=== PATIENT | male | born 1930 | race Caucasian/White ===

== ENCOUNTER 2018-03-12 13:15 | Outpatient (RCR) | payer MEDICARE ==
[~2018-03-12 13:15] MED LIST: AMLO10TA82 PO; ASP81TEC PO; ATOR10TA PO; CALC-146 PO; CARNITINE PO; CEFU500T5 PO; CHOL10008 PO; CHOL5000 PO; CIPR-17 PO; CRAN450T9 PO; DIGESTIVE ADVANTAGE PO; ENZY1CAP3 PO; FENO145T20 PO; FENO200C PO; FERR-65 PO; FLUT16SP22 NS; GARL1500 PO; GLUC-116 PO; GLUC-160 PO; GLUC1CAP37 PO; KRIL500C PO; LEVO500T2 PO; LISI20TA PO; LISI40TA PO; MAGNESIUM PO; MECL-106 PO; METAMUCIL POWD283 GM PO; METH454P PO; METO-333 PO; METO-387 PO; MGX400T PO; MULT-142 PO; MULT-959 PO; MULT1TAB5 PO; NICO2LOZ MM; OMEG-70 PO; OMEG10005 PO; OMEGA 3 KRILL OIL PO; OMEGA Q PLUS PO; PHEN100C11 PO; PHEN200T16 PO; PNT40TEC PO; POTA99TA13 PO; POTA99TA7 PO; POTASSIUM PO; SENN-75 PO; SIMV10TA3 PO; TICA90TA PO; TURMERIC PO; UBID100C17 PO; UBID50CA PO; VIT1CAPS29 PO; ZINC50TA5 PO; ZINC50TA51 PO; [UNRECOGNIZED DRUG - CODE] PO; [UNRECOGNIZED DRUG - CODE] PO; [UNRECOGNIZED DRUG - CODE] PO; [UNRECOGNIZED DRUG - OTHER] PO; [UNRECOGNIZED DRUG - OTHER] PO; policosanol PO
[2018-03-12 13:37] LABS: HEMATOCRIT 46 % (40-54); HEMOGLOBIN 15.1 G/DL (13.3-17.7); MEAN CORPUSCULAR HEMOGLOBIN 30 PG (25-34); MEAN CORPUSCULAR HGB CONC 33 G/DL (32-36); MEAN CORPUSCULAR VOLUME 90 FL (80-99); MEAN PLATELET VOLUME 10.8 FL (7.4-10.4); PLATELET COUNT 157 10^3/uL (130-400); RED BLOOD COUNT 5.09 10^6/uL (4.35-5.85); RED CELL DISTRIBUTION WIDTH 13.5 % (10.0-14.5)
[2018-03-12 13:46] LABS: WHITE BLOOD COUNT 43.9 10^3/uL (4.3-11.0)
[2018-03-12 14:03] LABS: ALBUMIN 4.1 GM/DL (3.2-4.5); BILIRUBIN,TOTAL 0.6 MG/DL (0.1-1.0); CALCIUM 9.3 MG/DL (8.5-10.1); CREATININE SERUM 1.21 MG/DL (0.60-1.30); POTASSIUM 4.5 MMOL/L (3.6-5.0); TOTAL PROTEIN 7.7 GM/DL (6.4-8.2)
== END 2018-03-23 | disposition home or self-care (01) ==
LOC: ONC 13:15
PROVIDERS: ATTEND Internal Medicine Hematology & Oncology
DX: D50.9 Iron deficiency anemia, unspecified (principal); F10.20 Alcohol dependence, uncomplicated; N28.9 Disorder of kidney and ureter, unspecified; I10 Essential (primary) hypertension; K29.70 Gastritis, unspecified, without bleeding; I25.10 Atherosclerotic heart disease of native coronary artery without angina pectoris; D72.820 Lymphocytosis (symptomatic); Z95.0 Presence of cardiac pacemaker; Z95.5 Presence of coronary angioplasty implant and graft; Z87.891 Personal history of nicotine dependence
CPT/HCPCS: 36415; 80053; 85025; 99213

== ENCOUNTER → 2018-04-09 | Outpatient (CLI) | payer MEDICARE ==
[~2018-04-09] VITALS: Ht 177.8 cm; Wt 103.0 kg
[~2018-04-09] MED LIST changes: +CATHETER FLUSH 10 ML SYR IV PRN; +REGADENOSON 0.4 MG/5 ML SYR (LEXISCAN) IV ONE
[2018-04-09 11:50] LABS: ALBUMIN 4.4 GM/DL (3.2-4.5); BILIRUBIN,TOTAL 0.5 MG/DL (0.1-1.0); CALCIUM 9.7 MG/DL (8.5-10.1); CREATININE SERUM 1.37 MG/DL (0.60-1.30); POTASSIUM 5.3 MMOL/L (3.6-5.0); TOTAL PROTEIN 8.7 GM/DL (6.4-8.2)
[2018-04-09 13:16] VITALS: BP 137/64
--- NOTE | 2018-04-09 17:57 | STRESS TEST ---
DATE OF SERVICE: 04/09/2018 LEXISCAN MYOVIEW STRESS TEST REPORT REFERRING PHYSICIAN: Pantera Urbano MD Baseline heart rate is 59, baseline blood pressure 137/64. Baseline EKG is sinus rhythm with no ischemic changes. In summary, the patient was injected with 10.89 mCi of technetium-99 Myoview and the resting images were obtained. Then, the patient received 0.4 mg of Lexiscan followed by 28.9 mCi of technetium-99 Myoview. Throughout the test, there were motion artifact. No EKG changes were noted. The resting and stress images were reviewed and compared in the short axis, horizontal long axis, and vertical long axis views. Review of the images showed motion artifact with diaphragmatic attenuation, mild decreased uptake at the inferior wall with mild reversibility. SSS is 3, SDS 3, TID value 1.16. On the gated images, the left ventricle appeared to be in normal size with normal contractility. Calculated ejection fraction 60%. CONCLUSION: 1. The patient tolerated Lexiscan well. 2. Motion artifact and diaphragmatic attenuation with typical male pattern. Questionable mild decrease uptake at the inferior wall, no significant ischemia or infarction was noted. 3. Normal left ventricular size with normal contractility. Calculated ejection fraction 60%. 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
== END ==
LOC: CARD 11:12
PROVIDERS: ATTEND Internal Medicine Cardiovascular Disease
DX: E78.2 Mixed hyperlipidemia (principal); I25.10 Atherosclerotic heart disease of native coronary artery without angina pectoris; I10 Essential (primary) hypertension; R06.02 Shortness of breath; Z95.0 Presence of cardiac pacemaker
CPT/HCPCS: 36415; 78452; 80053; 80061; 93017

== ENCOUNTER → 2018-04-25 | Outpatient (CLI) | payer MEDICARE ==
[~2018-04-25] MED LIST changes: -CATHETER FLUSH 10 ML SYR IV PRN; -REGADENOSON 0.4 MG/5 ML SYR (LEXISCAN) IV ONE
[2018-04-25 12:51] LABS: CREATININE SERUM 1.24 MG/DL (0.60-1.30); POTASSIUM 4.5 MMOL/L (3.6-5.0)
== END ==
LOC: LAB 12:14
PROVIDERS: ATTEND Internal Medicine Cardiovascular Disease
DX: I10 Essential (primary) hypertension (principal)
CPT/HCPCS: 36415; 80048

== ENCOUNTER → 2018-06-02 | Outpatient (CLI) | payer MEDICARE | LOC: CARD 11:34 | PROVIDERS: ATTEND Internal Medicine Cardiovascular Disease | DX: I25.10 Atherosclerotic heart disease of native coronary artery without angina pectoris (principal); I10 Essential (primary) hypertension; E78.2 Mixed hyperlipidemia; R06.02 Shortness of breath; I08.2 Rheumatic disorders of both aortic and tricuspid valves; Z95.0 Presence of cardiac pacemaker | CPT/HCPCS: 93306 ==

== ENCOUNTER → 2018-07-16 | Outpatient (RCR) | payer MEDICARE ==
[2018-04-17 13:21] LABS: HEMATOCRIT 49 % (40-54); HEMOGLOBIN 15.8 G/DL (13.3-17.7); MEAN CORPUSCULAR HEMOGLOBIN 29 PG (25-34); MEAN CORPUSCULAR HGB CONC 32 G/DL (32-36); MEAN CORPUSCULAR VOLUME 89 FL (80-99); PLATELET COUNT 164 10^3/uL (130-400); RED BLOOD COUNT 5.49 10^6/uL (4.35-5.85); RED CELL DISTRIBUTION WIDTH 13.8 % (10.0-14.5)
[2018-04-17 13:28] LABS: WHITE BLOOD COUNT 43.3 10^3/uL (4.3-11.0)
[2018-04-17 13:57] LABS: BAND NEUTROPHILS 0 %; BASOPHILS % (MANUAL) 0 %; EOSINOPHILS % (MANUAL) 2 %; LYMPHOCYTES % (MANUAL) 72 %; MONOCYTES % (MANUAL) 7 %; NEUTROPHILS % (MANUAL) 19 %; RBC MORPH NORMAL
[2018-05-01 12:42] LABS: HEMATOCRIT 46 % (40-54); HEMOGLOBIN 15.2 G/DL (13.3-17.7); MEAN CORPUSCULAR HEMOGLOBIN 30 PG (25-34); MEAN CORPUSCULAR HGB CONC 33 G/DL (32-36); MEAN CORPUSCULAR VOLUME 90 FL (80-99); MEAN PLATELET VOLUME 10.3 FL (7.4-10.4); PLATELET COUNT 162 10^3/uL (130-400); RED BLOOD COUNT 5.16 10^6/uL (4.35-5.85); RED CELL DISTRIBUTION WIDTH 14.2 % (10.0-14.5)
[2018-05-01 12:43] LABS: WHITE BLOOD COUNT 47.4 10^3/uL (4.3-11.0)
[2018-07-16 12:37] LABS: HEMATOCRIT 43 % (40-54); HEMOGLOBIN 13.9 G/DL (13.3-17.7); MEAN CORPUSCULAR HEMOGLOBIN 29 PG (25-34); MEAN CORPUSCULAR HGB CONC 32 G/DL (32-36); MEAN CORPUSCULAR VOLUME 91 FL (80-99); PLATELET COUNT 159 10^3/uL (130-400); RED BLOOD COUNT 4.74 10^6/uL (4.35-5.85); RED CELL DISTRIBUTION WIDTH 14.3 % (10.0-14.5)
[2018-07-16 12:43] LABS: WHITE BLOOD COUNT 58.8 10^3/uL (4.3-11.0)
[2018-07-16 12:50] LABS: ALBUMIN 4.2 GM/DL (3.2-4.5); BILIRUBIN,TOTAL 0.4 MG/DL (0.1-1.0); CALCIUM 9.4 MG/DL (8.5-10.1); CREATININE SERUM 1.52 MG/DL (0.60-1.30); POTASSIUM 4.6 MMOL/L (3.6-5.0)
== END | disposition home or self-care (01) ==
LOC: ONC 04-17 13:06
PROVIDERS: ATTEND Internal Medicine Hematology & Oncology
DX: D50.9 Iron deficiency anemia, unspecified (principal); F10.20 Alcohol dependence, uncomplicated; N28.9 Disorder of kidney and ureter, unspecified; I10 Essential (primary) hypertension; K29.70 Gastritis, unspecified, without bleeding; I25.10 Atherosclerotic heart disease of native coronary artery without angina pectoris; D72.820 Lymphocytosis (symptomatic); Z95.0 Presence of cardiac pacemaker; Z95.5 Presence of coronary angioplasty implant and graft; Z87.891 Personal history of nicotine dependence
CPT/HCPCS: 36415; 80053; 85007; 85025; 85027; 88184; 88185; 99213

== ENCOUNTER → 2019-01-07 | Outpatient (CLI) | payer MEDICARE ==
[2019-01-07 13:37] LABS: HEMATOCRIT 44 % (40-54); HEMOGLOBIN 13.9 G/DL (13.3-17.7); MEAN CORPUSCULAR HEMOGLOBIN 29 PG (25-34); MEAN CORPUSCULAR HGB CONC 32 G/DL (32-36); MEAN CORPUSCULAR VOLUME 92 FL (80-99); MEAN PLATELET VOLUME 11.1 FL (7.4-10.4); PLATELET COUNT 115 10^3/uL (130-400); RED CELL DISTRIBUTION WIDTH 14.4 % (10.0-14.5)
[2019-01-07 13:45] LABS: WHITE BLOOD COUNT 73.6 10^3/uL (4.3-11.0)
[2019-01-07 14:00] LABS: ALBUMIN 4.1 GM/DL (3.2-4.5); BILIRUBIN,TOTAL 0.5 MG/DL (0.1-1.0); CALCIUM 9.4 MG/DL (8.5-10.1); CREATININE SERUM 1.45 MG/DL (0.60-1.30); POTASSIUM 4.6 MMOL/L (3.6-5.0); TOTAL PROTEIN 7.8 GM/DL (6.4-8.2)
[2019-01-07 16:16] LABS: BAND NEUTROPHILS 0 %; BASOPHILS % (MANUAL) 0 %; EOSINOPHILS % (MANUAL) 0 %; LYMPHOCYTES % (MANUAL) 86 %; MONOCYTES % (MANUAL) 0 %; NEUTROPHILS % (MANUAL) 14 %; RBC MORPH NORMAL
== END ==
LOC: EDSTATUS 07-17 16:15 → ONC 12:26
PROVIDERS: ATTEND Internal Medicine Hematology & Oncology
DX: D50.9 Iron deficiency anemia, unspecified (principal); F10.20 Alcohol dependence, uncomplicated; N28.9 Disorder of kidney and ureter, unspecified; I10 Essential (primary) hypertension; K29.70 Gastritis, unspecified, without bleeding; I25.10 Atherosclerotic heart disease of native coronary artery without angina pectoris; D72.820 Lymphocytosis (symptomatic); Z95.0 Presence of cardiac pacemaker; Z95.5 Presence of coronary angioplasty implant and graft; Z87.891 Personal history of nicotine dependence
CPT/HCPCS: 80053; 82728; 83540; 85007; 85025; 85027; 99213